=== PATIENT | male | born 1995 | race Caucasian/White ===

== ENCOUNTER 2018-09-24 22:24 | Emergency (ER) | payer OTHER ==
[~2018-09-24] VITALS: Ht 177.8 cm; Wt 106.6 kg
[2018-09-24 22:28] VITALS: Ht 177.8 cm; Wt 106.6 kg
[2018-09-24] MEDS ORDERED: ROBAXIN500 MG PO (23:12)
[2018-09-25 00:03] VITALS: BP 146/89
== END 2018-09-24 23:58 | disposition home or self-care (01) ==
LOC: D.ER 22:24
DX: S29.012A Strain of muscle and tendon of back wall of thorax, initial encounter (principal); X58.XXXA Exposure to other specified factors, initial encounter; Y93.89 Activity, other specified; Y92.89 Other specified places as the place of occurrence of the external cause